=== PATIENT | male | born 1950 | race Caucasian/White ===

== ENCOUNTER → 2017-01-16 | Outpatient (CLI) | payer BC, MEDICARE ==
[~2017-01-16] MED LIST: ADAL20KI SQ; METH2.5T PO; SULF500T7 PO; [UNRECOGNIZED DRUG - CODE] PO
--- NOTE | 2017-01-16 08:15 | RAD ---
Chest, 2 views, 01/16/2017: History: Chest pain Comparison is made to a study from 05/18/2016. The heart size and pulmonary vascularity are normal. There is calcific plaque in the thoracic aorta. Stable pleural thickening laterally on the left is probably due to scarring. No acute infiltrate is seen. There is no evidence of pleural fluid. Moderate hypertrophic spurring is present in the spine. IMPRESSION: No acute cardiopulmonary abnormality is detected.
== END | disposition home or self-care (01) ==
LOC: DXRADRC 07:40
PROVIDERS: ATTEND Physician Assistant Medical
DX: R07.9 Chest pain, unspecified (principal); I70.0 Atherosclerosis of aorta; Z95.5 Presence of coronary angioplasty implant and graft
CPT/HCPCS: 71020

== ENCOUNTER → 2017-07-25 | Outpatient (CLI) | payer MEDICARE ==
--- NOTE | 2017-07-25 15:26 | RAD ---
MR#: [id number] Date of Study: 07/25/2017 Ordering Physician: MARTY GALAN, Referring Physician: MARTY GALAN, Tech: Raiza Swan RDMS, RVT, RTR APPROVED REPORT Patient Location : OUT-PATIENT Indications Limited grayscale images of the bilateral saphenofemoral junctions do not reveal any evidence of thro mbus. Spectral waveforms with Valsalva maneuver did not reveal any evidence of reflux in the bilatera l greater and lesser saphenous veins. The great saphenous vein on the right side measures 6.1 mm and on the left side measures 5.3 mm. The right lesser saphenous vein measures 4 mm in the left lesser sa phenous vein measures 4.3 mm Critical Notification Critical Value: No Signed by : Stephen Guerra, Electronically Approved : 07/25/2017 15:25:42
== END | disposition home or self-care (01) ==
LOC: US 12:17
PROVIDERS: ATTEND Internal Medicine Cardiovascular Disease
DX: R60.0 Localized edema (principal)
CPT/HCPCS: 93970

== ENCOUNTER → 2017-08-30 | Outpatient (CLI) | payer MEDICARE ==
--- NOTE | 2017-08-30 08:59 | RAD ---
Chest, 2 views, 08/30/2017: History: Chest congestion The heart size and pulmonary vascularity are normal. No pulmonary infiltrate is seen. There is no evidence of pleural fluid. Moderate hypertrophic spurring is present in the spine. IMPRESSION: No acute cardiopulmonary abnormality is detected.
== END | disposition home or self-care (01) ==
LOC: PMG 08:03
PROVIDERS: ATTEND Physician Assistant Medical
DX: R09.89 Other specified symptoms and signs involving the circulatory and respiratory systems (principal)
CPT/HCPCS: 71046

== ENCOUNTER → 2018-06-11 | Outpatient (CLI) | payer MEDICARE ==
[~2018-06-11] MED LIST changes: +ASPI325T8 PO; +ATOR40TA59 PO; +CLOP75TA57 PO; +HYDR200T5 PO; +LOSA50TA14 PO; +METO-239 PO; +TERA5CAP3 PO
[2018-06-11 15:10] LABS: CALCIUM 9.3 mg/dL (8.5-10.1); CREATININE 1.3 mg/dL (0.7-1.3); GFR 55.1
== END | disposition home or self-care (01) ==
LOC: LAB 14:22
PROVIDERS: ATTEND Physician Assistant Medical
DX: M79.606 Pain in leg, unspecified (principal); R60.9 Edema, unspecified
CPT/HCPCS: 36415; 80048

== ENCOUNTER 2018-06-12 19:43 | Emergency (ER) | payer MEDICARE ==
[~2018-06-12 19:43] MED LIST changes: -ASPI325T8 PO; -ATOR40TA59 PO; -CLOP75TA57 PO; -HYDR200T5 PO; -LOSA50TA14 PO; -METO-239 PO; -TERA5CAP3 PO
[2018-06-12] MEDS ORDERED: ONDANSETRON PF 4 MG/2 ML VIAL. ONE (19:46)
[2018-06-12] MEDS ORDERED: ONDANSETRON ODT 4 MG TAB.RAPDIS ONE (19:47)
[2018-06-12] MEDS ORDERED: IV NORMAL SALINE 1,000ML 1,000 ML IV ONE (20:00)
[2018-06-12 20:15] LABS: BASO % 0 % (0-3); EOS % 0 % (0-3); HEMATOCRIT 52.5 % (39.0-53.0); HEMOGLOBIN 17.6 g/dL (13.0-17.5); LYMPH # 2.1 x10^3/uL (1.0-4.8); LYMPH % 10 % (24-48); MEAN CORPUSCULAR HEMOGLOBIN 30 pg (25-35); MEAN CORPUSCULAR HGB CONC 34 g/dL (31-37); MEAN CORPUSCULAR VOLUME 89 fL (79-100); MONO # 1.2 x10^3/uL (0.0-1.1); MONO % 6 % (0-9); NEUT # 16.9 x10^3uL (1.8-7.7); NEUT % 83 % (31-73); PLATELET COUNT 304 x10^3/uL (140-400); RED BLOOD COUNT 5.92 x10^6/uL (4.30-5.70); RED CELL DISTRIBUTION WIDTH 13.5 % (11.5-14.5); WHITE BLOOD COUNT 20.3 x10^3/uL (4.0-11.0)
[2018-06-12] MEDS ORDERED: ONDANSETRON PF 4 MG/2 ML VIAL. IV ONE ×2 (20:15)
[2018-06-12] MEDS ORDERED: ONDANSETRON ODT 4 MG TAB.RAPDIS PO ONE (20:15)
[2018-06-12] MEDS ORDERED: PROCHLORPERAZINE 10 MG/2 ML VIAL. IV ONE (20:45)
--- NOTE | 2018-06-12 20:46 | PHYS DOC ---
Past History Past Medical History: Hypertension, Other Past Surgical History: Other Smoking: Cigarettes Alcohol Use: Heavy Drug Use: None Adult General Chief Complaint Chief Complaint: ABDOMINAL PAIN HPI HPI 68-year-old male presents with abdominal pain and vomiting. The patient tells me that he has had abdominal cramping this. Umbilical all day. He began to vomit at 5 PM today and is unable to stop. He has not had a normal bowel movement in 2 days. He has not had any gas since this morning. Patient has a cardiac history of stent placed 2-1/2 years ago with a 95% blockage. The patient is scheduled for a repeat heart catheter next week. The patient was recently placed on a "water pill". He was not placed on potassium supplementation. He had labs drawn yesterday which showed a potassium of 3.0. Patient denies overt chest pain or shortness of breath. He does tell me that he has a known left bundle-branch block. He denies fever or chills. He takes baby aspirin daily. He is unable to keep down anything orally liquid or solid. Review of Systems Review of Systems Constitutional: Denies fever or chills [] Eyes: Denies change in visual acuity, redness, or eye pain [] HENT: Denies nasal congestion or sore throat [] Respiratory: Denies cough or shortness of breath [] Cardiovascular: No additional information not addressed in HPI [] GI: Periumbilical abdominal pain, nausea, vomiting. No bloody stools or diarrhea [] : Denies dysuria or hematuria [] Musculoskeletal: Denies back pain or joint pain [] Integument: Denies rash or skin lesions [] Neurologic: Denies headache, focal weakness or sensory changes [] Endocrine: Denies polyuria or polydipsia [] All other systems were reviewed and found to be within normal limits, except as documented in this note. Current Medications Current Medications Current Medications Medications (Trade) Dose Ordered Sig/Ngoc Start Time Stop Time Status Last Admin Dose Admin Ondansetron HCl (Zofran Odt) 4 mg 1X ONCE 06/12/18 20:15 06/12/18 20:18 DC 06/12/18 20:12 4 MG Ondansetron HCl (Zofran) 4 mg 1X ONCE 06/12/18 20:15 06/12/18 20:18 DC 06/12/18 20:12 4 MG Sodium Chloride 1,000 ml @ 1,000 mls/hr 1X ONCE 06/12/18 20:00 06/12/18 20:59 Allergies Allergies Allergies Coded Allergies Type Severity Reaction Last Updated Verified ampicillin Allergy Unknown 11/17/13 No bee venom protein (honey bee) Allergy Unknown 06/12/18 Yes Physical Exam Physical Exam Constitutional: Well developed, well nourished, no acute distress, non-toxic appearance. Diaphoretic [] HENT: Normocephalic, atraumatic, bilateral external ears normal, oropharynx dry , no oral exudates, nose normal. [] Eyes: PERRLA, EOMI, conjunctiva normal, no discharge. [] Neck: Normal range of motion, no tenderness, supple, no stridor. [] Cardiovascular:Heart rate regular rhythm, no murmur [] Lungs & Thorax: Bilateral breath sounds clear to auscultation [] Abdomen: Soft, mild diffuse tenderness, no masses, no pulsatile masses. [] Skin: Warm, dry, no erythema, no rash. [] Back: No tenderness, no CVA tenderness. [] Extremities: No tenderness, no cyanosis, no clubbing, ROM intact, no edema. [] Neurologic: Alert and oriented X 3, normal motor function, normal sensory function, no focal deficits noted. [] Psychologic: Affect normal, judgement normal, mood normal. [] Current Patient Data Vital Signs Vital Signs Date Time Temp Pulse Resp B/P (MAP) Pulse Ox O2 Delivery O2 Flow Rate FiO2 06/12/18 19:45 98.2 87 28 100 Room Air Lab Results Laboratory Tests Test 06/12/18 19:40 White Blood Count 20.3 x10^3/uL (4.0-11.0) H Red Blood Count 5.92 x10^6/uL (4.30-5.70) H Hemoglobin 17.6 g/dL (13.0-17.5) H Hematocrit 52.5 % (39.0-53.0) Mean Corpuscular Volume 89 fL (79-100) Mean Corpuscular Hemoglobin 30 pg (25-35) Mean Corpuscular Hemoglobin Concent 34 g/dL (31-37) Red Cell Distribution Width 13.5 % (11.5-14.5) Platelet Count 304 x10^3/uL (140-400) Neutrophils (%) (Auto) 83 % (31-73) H Lymphocytes (%) (Auto) 10 % (24-48) L Monocytes (%) (Auto) 6 % (0-9) Eosinophils (%) (Auto) 0 % (0-3) Basophils (%) (Auto) 0 % (0-3) Neutrophils # (Auto) 16.9 x10^3uL (1.8-7.7) H Lymphocytes # (Auto) 2.1 x10^3/uL (1.0-4.8) Monocytes # (Auto) 1.2 x10^3/uL (0.0-1.1) H Eosinophils # (Auto) 0.0 x10^3/uL (0.0-0.7) Basophils # (Auto) 0.0 x10^3/uL (0.0-0.2) Platelet Estimate Pending EKG EKG Sinus rhythm, rate 85, left axis, prolonged IA, left bundle branch block.[] Radiology/Procedures Radiology/Procedures [] Course & Med Decision Making Course & Med Decision Making Pertinent Labs and Imaging studies reviewed. (See chart for details) The patient had significant vomiting on arrival. He required 8 mg of Zofran and 10 mg of Compazine. His vomiting is now controlled. The patient's labs are significant for a white count of 20.3, potassium of 2.7, lactic acid 3.6, creatinine 1.8, and general hemoconcentration. I have given the patient 1 L normal saline. I will also give him an additional liter with 40 mEq of potassium. His EKG shows sinus rhythm but there is a left bundle-branch block. The patient did tell me that he has a known left bundle branch block so this was not new. His CT scan is pending. The patient's CT scan shows a small bowel obstruction in the pelvis. An NG tube will be placed in the ED. Repeat lactic acid ordered. I discussed the obstruction with the patient and the need for admission to a facility with surgery. The patient does not want to go to [facility]. He would prefer to go to [facility]. I discussed this with the transfer center at [facility] and Dr. Lira has accepted the patient. He will determine the appropriate [facility] facility and bed availability. The patient will go by ambulance. Greater than one hour of critical care time was spent on this patient. This is exclusive of any other billable procedures. [] Dragon Disclaimer Dragon Disclaimer This electronic medical record was generated, in whole or in part, using a voice recognition dictation system. Departure Departure: Impression: Primary Impression: Small bowel obstruction Additional Impressions: Lactic acidosis Hypokalemia Dehydration Coronary artery disease Abnormal CT of spine CHF (congestive heart failure) Disposition: 02 XFER SHT-TRM HOSP Condition: GUARDED Referrals: ROBERT POTTER (PCP) Problem Qualifiers Additional Impressions: Coronary artery disease Coronary Disease-Associated Artery/Lesion type: unspecified vessel or lesion type [place] vs. transplanted heart: [place] heart Associated angina: without angina Qualified Codes: I25.10 - Atherosclerotic heart disease of [place] coronary artery without angina pectoris CHF (congestive heart failure) Heart failure type: systolic Heart failure chronicity: chronic Qualified Codes: I50.22 - Chronic systolic (congestive) heart failure DEBRA APODACA DO Jun 12, 2018 20:46
[2018-06-12] MEDS ORDERED: HYDR200T5 PO (20:50)
[2018-06-12] MEDS ORDERED: METO-239 PO (20:51)
[2018-06-12] MEDS ORDERED: ATOR40TA59 PO (20:51)
[2018-06-12 20:52] LABS: % BANDS 8 % (0-9); % LYMPHS 15 % (24-48); % MONOS 6 % (0-10); % SEGS 71 % (35-66)
[2018-06-12] MEDS ORDERED: LOSA50TA14 PO (20:52)
[2018-06-12 20:53] LABS: PLT ESTIMATE ADEQUATE (ADEQUATE); SMUDGE CELLS PRESENT; TOXIC GRANULATION MOD; TOXIC VACUOLATION SLIGHT
[2018-06-12] MEDS ORDERED: ASPI325T8 PO (20:53)
[2018-06-12] MEDS ORDERED: CLOP75TA57 PO (20:53)
[2018-06-12] MEDS ORDERED: TERA5CAP3 PO (20:54)
[2018-06-12] MEDS ORDERED: IOHEXOL 300 MG/ML 75 ML VIAL. IV ONE (21:00)
[2018-06-12 21:08] LABS: ALBUMIN 4.8 g/dL (3.4-5.0); ALBUMIN/GLOBULIN RATIO 1.1 (1.0-1.7); CALCIUM 10.2 mg/dL (8.5-10.1); CREATININE 1.8 mg/dL (0.7-1.3); GFR 37.8; TOTAL BILIRUBIN 0.8 mg/dL (0.2-1.0); TOTAL PROTEIN 9.2 g/dL (6.4-8.2)
[2018-06-12 21:12] LABS: POTASSIUM 2.7 mmol/L (3.5-5.1)
[2018-06-12] MEDS ORDERED: POTASSIUM CL 40MEQ IN 0.9%NACL 1,000 ML IV ONE (21:15)
--- NOTE | 2018-06-12 22:34 | RAD ---
Examination: CT ABDOMEN PELVIS WO CONTRAST History: Severe vomiting. Eval for obstruction. Unable to use contrast due to lab levels and GFR. No prior injury or surgery to abdomen Comparison/Correlation: None Findings: Axial images of the abdomen and pelvis were obtained without contrast. Sagittal and coronal reformatted images provided. Visualized lung bases are clear. Mild fatty infiltration of the liver is present. Gallbladder fossa is normal. Spleen is normal. Adrenal glands are normal. No radiopaque collecting system calculi or evidence of collecting system obstruction. Distended left abdominal small bowel loops evident with transition point within the mid pelvis. Diverticulosis of the colon is present primarily in the sigmoid region. No extraluminal gas or obstruction. No inflammatory changes. Appendix is normal. Stool within the distal ileum noted. Moderate quantity of stool in the colon. Prostate gland calcifications are notable. No ascites or pelvic free fluid. Multiple sclerotic bony lesions are present of varying sizes. Largest of these involves the L1 vertebra measuring 1.9 cm diameter. Impression: Distended jejunal loops of bowel with small bowel obstruction. Transition point within the mid pelvis. Diverticulosis. Sclerotic densities involving bony structures. While these may represent bone islands, more severe process is not necessarily excluded. Consider further evaluation with bone scintigraphy if osteoblastic metastases are a concern. No prostatomegaly seen. Electronically signed by: Ramy Baugh MD (06/12/2018 10:30 PM) [facility]
[2018-06-13 00:30] VITALS: BP 158/81
--- NOTE | 2018-06-13 02:33 | RAD ---
AP chest. HISTORY: NG placement AP view was taken of the chest. There is an NG tube in the mid esophagus. Lungs are clear. Heart is normal in size. The emergency room was called and notified of findings at 2:30 AM, the patient had been transferred. IMPRESSION: 1. NG tube in the mid esophagus. 2. No acute infiltrates. Electronically signed by: Alex Stanton MD (06/13/2018 2:29 AM) [facility]
== END 2018-06-13 01:03 | disposition short-term general hospital (02) ==
LOC: ER 19:43
DX: K56.609 Unspecified intestinal obstruction, unspecified as to partial versus complete obstruction (principal); E87.2 Acidosis; E87.6 Hypokalemia; E86.0 Dehydration; I25.10 Atherosclerotic heart disease of native coronary artery without angina pectoris; R93.89 Abnormal findings on diagnostic imaging of other specified body structures; I50.22 Chronic systolic (congestive) heart failure; I11.0 Hypertensive heart disease with heart failure; F17.210 Nicotine dependence, cigarettes, uncomplicated; F10.20 Alcohol dependence, uncomplicated; Z88.1 Allergy status to other antibiotic agents; Z91.030 Bee allergy status; Y90.9 Presence of alcohol in blood, level not specified
CPT/HCPCS: 36415; 43752; 71045; 74176; 80053; 83605; 83690; 84484; 85007; 85025; 96361; 96365; 96366; 96375; 99285; J0780; J2405; Q0162; J7030

== ENCOUNTER → 2018-10-07 | Outpatient (CLI) | payer MEDICARE ==
[~2018-10-07] MED LIST changes: +ASPI325T8 PO; +ATOR40TA59 PO; +CLOP75TA57 PO; +HYDR200T5 PO; +LOSA50TA14 PO; +METO-239 PO; +TERA5CAP3 PO
--- NOTE | 2018-10-07 13:49 | CARD ---
MR#: [id number] Date of Study: 10/07/2018 Ordering Physician: MARTY GALAN, Referring Physician: MARTY GALAN Tech: Clarisa Magallon RDCS APPROVED REPORT EXAM: Two-dimensional and M-mode echocardiogram with Doppler and color Doppler. Other Information Quality : Good Technically limited study due to INDICATION Cardiomyopathy 2D DIMENSIONS RVDd2.6 (2.9-3.5cm)Left Atrium(2D)4.1 (1.6-4.0cm) IVSd1.2 (0.7-1.1cm)Aortic Root(2D)2.6 (2.0-3.7cm) LVDd5.2 (3.9-5.9cm)LVOT Diameter2.3 (1.8-2.4cm) PWd1.2 (0.7-1.1cm)LVDs4.1 (2.5-4.0cm) FS (%) 21.4 %SV55.5 ml LVEF(%)43.1 (>50%) Aortic Valve AoV Peak Jimmy.176.4cm/sAoV VTI34.1cm AO Peak GR.12.4mmHgLVOT Peak Jimmy.103.8cm/s LVOT VTI 20.17cmAO Mean GR.7mmHg SELVIN (VMAX)2.60vl8WBF (VTI)2.39cm2 Mitral Valve MV E Tstrbnqk24.3cm/sMV DECEL OGYW759ag MV A Nkwmlmqo88.8cm/sE/A Ratio0.6 Pulmonary Vein S1 Kqlbjaoj94.8cm/sD2 Kockykuw59.2cm/s LEFT VENTRICLE The left ventricle is normal size. There is mild concentric left ventricular hypertrophy. Left ventri hoa systolic function is moderately impaired. EF 35% Septal motion consistent with conduction abnorma lity. There is moderate to severe global hypokinesis of the left ventricle. Transmitral Doppler flow pattern is Grade I-abnormal relaxation pattern. RIGHT VENTRICLE The right ventricle is normal size. The right ventricular systolic function is normal. ATRIA The left atrium is mildly dilated. The right atrium size is normal. The interatrial septum is intact with no evidence for an atrial septal defect or patent foramen ovale as noted on 2-D or Doppler imagi ng. AORTIC VALVE The aortic valve is calcified but opens well. Doppler and Color Flow revealed no significant aortic r egurgitation. There is no significant aortic valvular stenosis. MITRAL VALVE The mitral valve is normal in structure and function. There is no evidence of mitral valve prolapse. There is no mitral valve stenosis. Doppler and Color-flow revealed trace mitral regurgitation. TRICUSPID VALVE The tricuspid valve is normal in structure and function. Doppler and Color Flow revealed no tricuspid valve regurgitation noted. There is no tricuspid valve stenosis. PULMONIC VALVE The pulmonic valve is not well visualized. Doppler and Color Flow revealed trace pulmonic valvular re gurgitation. There is no pulmonic valvular stenosis. GREAT VESSELS The aortic root is normal in size. The ascending aorta is normal in size. The IVC is normal in size a nd collapses >50% with inspiration. PERICARDIAL EFFUSION There is no evidence of significant pericardial effusion. Critical Notification Critical Value: No <Conclusion> Left ventricle systolic function is moderately impaired. EF 35% Septal motion consistent with conduction abnormality. There is moderate to severe global hypokinesis of the left ventricle. Signed by : Stephen Guerra, Electronically Approved : 10/07/2018 13:48:44
== END | disposition home or self-care (01) ==
LOC: ECHO 12:51
PROVIDERS: ATTEND Internal Medicine Cardiovascular Disease
DX: I35.8 Other nonrheumatic aortic valve disorders (principal); I51.7 Cardiomegaly
CPT/HCPCS: 93306

== ENCOUNTER → 2019-11-05 | Outpatient (CLI) | payer MEDICARE ==
--- NOTE | 2019-11-05 11:17 | CARD ---
MR#: [id number] Date of Study: 11/05/2019 Ordering Physician: MARTY GALAN, Referring Physician: MARTY GALAN, Tech: Anisha Wilson APPROVED REPORT EXAM: Two-dimensional and M-mode echocardiogram with Doppler and color Doppler. Other Information Quality : AverageHR: 80bpm INDICATION Cardiac Disease: CAD Cardiomyopathy Congestive Heart Failure Surgery/Intervention Pacemaker: Date: 2019 stent 4 years ago 2016 RISK FACTORS Hypertension Hyperlipidemia 2D DIMENSIONS Left Atrium(2D)3.6 (1.6-4.0cm)IVSd1.4 (0.7-1.1cm) Aortic Root(2D)3.3 (2.0-3.7cm)LVDd5.1 (3.9-5.9cm) LVOT Diameter1.9 (1.8-2.4cm)PWd1.4 (0.7-1.1cm) LVDs3.9 (2.5-4.0cm)FS (%) 22.3 % SV54.6 mlLVEF(%)44.7 (>50%) Aortic Valve AoV Peak Jimmy.151.9cm/sAoV VTI28.0cm AO Peak GR.9.2mmHgLVOT Peak Jimmy.113.5cm/s LVOT VTI 19.94cmAO Mean GR.4mmHg SELVIN (VMAX)2.29tx7MFW (VTI)2.09cm2 Mitral Valve MV E Hzgxpykg02.8cm/sMV DECEL TGYX379ag MV A Osbpyrcq73.6cm/sE/A Ratio0.8 Pulmonary Valve PV Peak Upfjbgkf12.5cm/sPV Peak Grad.4mmHg Tricuspid Valve TR P. Bqvyphvl374re/sRAP XMWSTAYR8hyHr TR Peak Gr.30jfFeBVED13jpRz Pulmonary Vein S1 Tpeyxzav90.1cm/sD2 Sxwdkhia59.9cm/s LEFT VENTRICLE The left ventricle is normal size. There is mild to moderate concentric left ventricular hypertrophy. The left ventricular systolic function is low normal. The Ejection Fraction is 40-45%. There is slig ht global hypokinesis of the left ventricle. Septal motion suggestive of paced rhythm. Transmitral Do ppler flow pattern is Grade I-abnormal relaxation pattern. RIGHT VENTRICLE The right ventricle is normal size. There is normal right ventricular wall thickness. The right ventr icular systolic function is normal. There is a pacemaker lead in the right ventricle. ATRIA The left atrium size is normal. The right atrium size is normal. The interatrial septum is intact wit h no evidence for an atrial septal defect or patent foramen ovale as noted on 2-D or Doppler imaging. AORTIC VALVE The aortic valve is normal in structure and function. Doppler and Color Flow revealed trace aortic re gurgitation. There is no significant aortic valvular stenosis. MITRAL VALVE The mitral valve is normal in structure and function. There is no evidence of mitral valve prolapse. There is no mitral valve stenosis. Doppler and Color-flow revealed trace mitral regurgitation. TRICUSPID VALVE The tricuspid valve is normal in structure and function. Doppler and Color Flow revealed trace tricus pid regurgitation with an estimated PAP of 29 mmHg. There is no tricuspid valve stenosis. PULMONIC VALVE The pulmonic valve is not well visualized. Doppler and Color Flow revealed trace pulmonic valvular re gurgitation. There is no pulmonic valvular stenosis. GREAT VESSELS The aortic root is normal in size. The IVC was not visualized. PERICARDIAL EFFUSION There is no evidence of significant pericardial effusion. Critical Notification Critical Value: No <Conclusion> The left ventricular systolic function is low normal. The Ejection Fraction is 40-45%. There is slight global hypokinesis of the left ventricle. Septal motion suggestive of paced rhythm. There is a pacemaker lead in the right ventricle. Signed by : Stephen Guerra, Electronically Approved : 11/05/2019 11:17:32
== END | disposition home or self-care (01) ==
LOC: ECHO 09:52
PROVIDERS: ATTEND Internal Medicine Cardiovascular Disease
DX: I51.7 Cardiomegaly (principal); K57.90 Diverticulosis of intestine, part unspecified, without perforation or abscess without bleeding; K76.0 Fatty (change of) liver, not elsewhere classified; I42.9 Cardiomyopathy, unspecified
CPT/HCPCS: 93306

== ENCOUNTER → 2020-05-10 | Outpatient (CLI) | payer MEDICARE ==
[~2020-05-10] MED LIST changes: +REGADENOSON 0.4 MG/5 ML DISP.SYRIN. IV ONE
--- NOTE | 2020-05-10 12:54 | RAD ---
MR#: [id number] Date of Study: 05/10/2020 Ordering Physician: MARTY DE LA ROSA Referring Physician: STEVEN HENRY Tech: RT Carlos WalkerR) (N) APPROVED REPORT Test Type: Pharmacological Stress Nurse/Tech: RT Aaron (Mati) (N) Test Indications: coronary artery disease Cardiac History: 1 stent about 4 years ago Medications: see EHR Medical History: see EHR Resting ECG: v paced Resting Heart Rate: 66 bpm Resting Blood Pressure: 158/76mmHg Nurse/Tech Notes Consent: The procedure was explained to the patient in lay terms. Informed consent was witnessed. Paulie eout was entered into Connect. History and Stress Test performed by RT Aaron (Mati) (N) Pharm. Details Pharmacologic stress testing was performed using 0.4mg per 5ml of regadenoson given intravenously ove r 7-10 seconds. POST EXERCISE Reason for Termination: Infusion complete Max HR: 86 bpm Max Blood Pressure: 154/76mmHg INTERPRETATION Stress EKG Conclusion: Baseline EKG showed atrial sensed ventricular paced rhythm. Non diagnostic ch anges at peak stress. No arrhythmias. Imaging Protocol IMAGE PROTOCOL: Rest Tc-99m/stress Tc-99m 1 day Rest: Stress: Viability: Radiopharm.Tc99m CdyuhywjkLg42w Sestamibi Dose10.7mCi 31mCi Duration 15min. 10min. Img Date 05/10/2020 05/10/2020 Inj-Img Ucqy39mhe. 60min. Rest Admin Site:IV - Right HandAdministrator: RT Aaron (R)(N) Stress Admin Site: IV - Right HandAdministrator: RT Aaron (Mati)(N) STRESS DATA End Diast. Vol.86.0mlAv. Heart Rate85.0bpm End Syst. Vol.29.0mlCO Index BSA0.0L/min Myocardial Wugv220.0gEject. Hdbnwtjj18.0% Stress Rates Pk. Fill Rate3.76EDV/secLVtime Pk. Fill 207.49msec Pk. Empty Rate4.90ESV/secLVtime Pk. Eject98.19msec 1/3 Pk. Fill0.88EDV/sec Stress Scores Regional WT0.00Summed WT5.00 Regional WM0.00Summed WM6.00 Study quality was good. Left Ventricular size was Normal at Rest and Stress. Lung uptake was . Left Ventricular ejection fraction is 75%. The rest and stress images show normal perfusion, normal contraction and thickening. LV Perf. Quant 17 Seg. SSS0.00 17 Seg. SRS1.00 17 Seg. SDS0.00 Stress Defect Extent (% LAD)0.00Rest Defect Extent (% LAD)0.00Rev. Defect Extent (% LAD)0.00 Stress Defect Extent (% LCX) 0.00Rest Defect Extent (% LCX)15.00Rev. Defect Extent (% LCX)0.00 Stress Defect Extent (% RCA)0.00Rest Defect Extent (% RCA)0.00Rev. Defect Extent (% RCA)0.00 Stress Defect Extent (% DEANDRE)0.00Rest Defect Extent (% DEANDRE)3.30Rev. Defect Extent (% DEANDRE)0.00 Conclusion 1. Regadenoson cardioisotope stress test did not show any evidence of ischemia or infarct. 2. Normal left ventricular systolic function with ejection fraction calculated at 75%. 3. Low risk for cardiac events. Signed by : Marty De La Rosa, Electronically Approved : 05/10/2020 12:54:13
--- NOTE | 2020-05-10 14:04 | RAD ---
MR#: [id number] Date of Study: 05/10/2020 Ordering Physician: MARTY GALAN, Referring Physician: MARTY GALAN, Tech: APPROVED REPORT Patient Location: OUT-PATIENT Laterality:Bilateral Indications Bruit Grayscale images demonstrate mild to moderate diffuse atherosclerosis without any focal obstruction. Spectral waveforms and color Doppler are grossly within normal limits in the bilateral internal carot id arteries. Overall 0 to less than 50% stenosis. No significant external carotid arterial disease noted. Bilateral vertebral velocities are antegrade. Risk Factors Hypertension: Treated with medical therapy : Smoking Doppler Spectral Velocity Analysis Right Left pCCA 99/23 cm/spCCA 96/25 cm/s mCCA 77/21 cm/smCCA 91/27 cm/s dCCA 75/20 cm/sdCCA 81/25 cm/s ECA 124/ cm/sECA 121/ cm/s pICA 75/19 cm/spICA 73/19 cm/s Syed 67/15 cm/smICA 77/26 cm/s dICA 35/13 cm/sdICA 101/35 cm/s ICA/CCA 0.76ICA/CCA 1.05 Critical Notification Critical Value: No <Conclusion> 1. No significant carotid occlusive disease bilaterally Signed by : Stephen Guerra, Electronically Approved : 05/10/2020 14:04:33
== END ==
LOC: NM 08:11
PROVIDERS: ATTEND Internal Medicine Cardiovascular Disease
DX: R09.89 Other specified symptoms and signs involving the circulatory and respiratory systems (principal)
CPT/HCPCS: 78452; 93017; 93880; A9500; J2785

== ENCOUNTER → 2020-11-15 | Outpatient (CLI) | payer MEDICARE, OTHER ==
[~2020-11-15] MED LIST changes: -REGADENOSON 0.4 MG/5 ML DISP.SYRIN. IV ONE
--- NOTE | 2020-11-16 10:06 | CARD ---
MR#: [id number] Date of Study: 11/15/2020 Ordering Physician: MARTY GALAN, Referring Physician: MARTY GALAN, Tech: Anisha Wilson [facility] APPROVED REPORT EXAM: Two-dimensional and M-mode echocardiogram with Doppler and color Doppler. Other Information Quality : AverageHR: 72bpm Rhythm : Pacemaker INDICATION Cardiomyopathy Surgery/Intervention Pacemaker: Date: 2018 RISK FACTORS Previous smoker 2D DIMENSIONS RVDd3.0 (2.9-3.5cm)Left Atrium(2D)3.7 (1.6-4.0cm) IVSd1.2 (0.7-1.1cm)Aortic Root(2D)2.9 (2.0-3.7cm) LVDd5.6 (3.9-5.9cm)LVOT Diameter2.0 (1.8-2.4cm) PWd1.1 (0.7-1.1cm)LVDs3.4 (2.5-4.0cm) FS (%) 40.4 %SV110.2 ml Aortic Valve AoV Peak Jimmy.151.7cm/sAoV VTI33.2cm AO Peak GR.9.2mmHgLVOT Peak Jimmy.82.9cm/s LVOT VTI 17.66cmAO Mean GR.5mmHg SELVIN (VMAX)1.67wn2VRO (VTI)1.67cm2 Mitral Valve MV E Bvgpqjvw79.9cm/sMV DECEL KDLR447yg MV A Nflhklsb38.5cm/sE/A Ratio0.7 Pulmonary Valve PV Peak Mhpztcub61.6cm/sPV Peak Grad.2mmHg Tricuspid Valve TR P. Eqresepy461rl/sRAP BSQDSDOG3crLv TR Peak Gr.79xzMnTGGE82yjBf Pulmonary Vein S1 Pgxvrwah37.5cm/sD2 Difuyyia70.6cm/s LEFT VENTRICLE The left ventricle is normal size. There is mild concentric left ventricular hypertrophy. Overall lef t ventricular systolic function is intact with an ejection fraction of 55 to 60%. There is a small a celeste of very apical mild hypokinesis. Transmitral Doppler flow pattern is Grade I-abnormal relaxation pattern. RIGHT VENTRICLE The right ventricle is mildly dilated. There is normal right ventricular wall thickness. The right ve ntricular systolic function is normal. There is a pacemaker lead in the right ventricle. ATRIA The left atrium size is normal. The right atrium size is normal. The interatrial septum is intact wit h no evidence for an atrial septal defect or patent foramen ovale as noted on 2-D or Doppler imaging. AORTIC VALVE The aortic valve is thickened but opens well. Doppler and Color Flow revealed trace aortic regurgitat ion. There is no significant aortic valvular stenosis. Calculated aortic valve area is 2.0 cm2 with m aximum pressure gradient of 9 mmHg and mean pressure gradient of 5 mmHg. MITRAL VALVE The mitral valve is normal in structure and function. There is no evidence of mitral valve prolapse. There is no mitral valve stenosis. Doppler and Color-flow revealed trace mitral regurgitation. TRICUSPID VALVE The tricuspid valve is normal in structure and function. Doppler and Color Flow revealed trace tricus pid regurgitation with an estimated PAP of 31 mmHg. There is no tricuspid valve stenosis. PULMONIC VALVE The pulmonic valve is not well visualized. Doppler and Color Flow revealed trace pulmonic valvular re gurgitation. GREAT VESSELS The aortic root is normal in size. The IVC is normal in size and collapses >50% with inspiration. PERICARDIAL EFFUSION There is no evidence of significant pericardial effusion. Critical Notification Critical Value: No <Conclusion> The left ventricle is normal size. Overall left ventricular systolic function is intact with an ejection fraction of 55 to 60%. There is a small area of very apical mild hypokinesis. There is mild concentric left ventricular hypertrophy. Doppler and Color Flow revealed trace aortic regurgitation. There is no significant aortic valvular stenosis. Doppler and Color-flow revealed trace mitral regurgitation. Doppler and Color Flow revealed trace tricuspid regurgitation with an estimated PAP of 31 mmHg. Signed by : Vahid Palomares MD Electronically Approved : 11/16/2020 10:05:44
== END ==
LOC: ECHO 08:53
PROVIDERS: ATTEND Internal Medicine Cardiovascular Disease
DX: I51.7 Cardiomegaly (principal); I42.9 Cardiomyopathy, unspecified; Z95.0 Presence of cardiac pacemaker
CPT/HCPCS: 93306

== ENCOUNTER 2021-01-07 14:01 | Emergency (ER) | payer MEDICARE, OTHER ==
[~2021-01-07] VITALS: Ht 172.7 cm; Wt 99.2 kg
[2021-01-07 14:26] LABS: BASO # 0.1 x10^3/uL (0.0-0.2); BASO % 1 % (0-3); EOS # 0.4 x10^3/uL (0.0-0.7); EOS % 4 % (0-3); HEMATOCRIT 44.7 % (39.0-53.0); HEMOGLOBIN 15.2 g/dL (13.0-17.5); LYMPH # 3.8 x10^3/uL (1.0-4.8); LYMPH % 33 % (24-48); MEAN CORPUSCULAR HEMOGLOBIN 31 pg (25-35); MEAN CORPUSCULAR HGB CONC 34 g/dL (31-37); MEAN CORPUSCULAR VOLUME 91 fL (79-100); MONO % 9 % (0-9); NEUT # 6.1 x10^3uL (1.8-7.7); NEUT % 53 % (31-73); PLATELET COUNT 247 x10^3/uL (140-400); RED CELL DISTRIBUTION WIDTH 13.6 % (11.5-14.5); WHITE BLOOD COUNT 11.4 x10^3/uL (4.0-11.0)
[2021-01-07] MEDS ORDERED: IV NORMAL SALINE 500ML 500 ML IV ONE (14:30)
[2021-01-07 14:41] LABS: CALCIUM 9.7 mg/dL (8.5-10.1); CREATININE 1.4 mg/dL (0.7-1.3); GFR 50.2; POTASSIUM 3.7 mmol/L (3.5-5.1)
[2021-01-07] MEDS ORDERED: AMIODARONE 150 MG in IV DEXTROSE 5% 100 ML IVP ONE (14:45)
[2021-01-07 14:47] LABS: ALBUMIN 4.3 g/dL (3.4-5.0); ALBUMIN/GLOBULIN RATIO 1.3 (1.0-1.7); TOTAL BILIRUBIN 0.7 mg/dL (0.2-1.0); TOTAL PROTEIN 7.6 g/dL (6.4-8.2)
--- NOTE | 2021-01-07 14:49 | PHYS DOC ---
Past History Past Medical History: Hypertension, Other Additional Past Medical Histor: Autoimmune disease (Metz's syndrome) RA, Past Surgical History: Other Additional Past Surgical Histo: cardiac stent, Pacer/AICD, neck sx, back sx Smoking: Cigarettes Alcohol Use: Heavy Drug Use: None General Adult EDM: Chief Complaint: AICD FIRED OR SHOCKED HPI: HPI: Patient is a 70 year old man who presents with an AICD fire. Has a history of ischemic cardiomyopathy with an AICD placed in 2019. Has a biventricular [employer] device that was placed at [facility] by Dr. De La Rosa. He was mowing his lawn today when he started to feel unwell. States that he was sweaty and nauseous feeling. He went inside and then he began to feel his heart racing just prior to the shock. His heart rate returned to normal following the shock. Did not lose consciousness. No preceding chest pain or shortness of breath. Is now feeling somewhat better, although somewhat dehydrated. He has never had an AICD fired before. His AICD was placed for cardiomyopathy rather than malignant arrhythmia. Review of Systems: Review of Systems: Constitutional: Denies fever or chills Eyes: Denies change in visual acuity HENT: Denies nasal congestion or sore throat Respiratory: Denies cough or shortness of breath Cardiovascular: AICD fire. Denies chest pain. GI: Denies abdominal pain, vomiting, bloody stools or diarrhea. Mild nausea. : Denies dysuria Musculoskeletal: Denies back pain or joint pain Integument: Denies rash Neurologic: Denies headache, focal weakness or sensory changes Endocrine: Denies polyuria or polydipsia Lymphatic: Denies swollen glands Psychiatric: Denies depression or anxiety Current Medications: Current Meds: Current Medications Medications (Trade) Dose Ordered Sig/Ngoc Start Time Stop Time Status Last Admin Dose Admin Sodium Chloride 500 ml @ 0 mls/hr 1X ONCE 01/07/21 14:30 01/07/21 14:31 DC Allergies: Allergies: Allergies Coded Allergies Type Severity Reaction Last Updated Verified ampicillin Allergy Unknown 11/17/13 No bee venom protein (honey bee) Allergy Unknown 06/12/18 Yes Physical Exam: PE: Constitutional: Diaphoretic. Well developed, well nourished, no acute distress, non-toxic appearance. [] HENT: Normocephalic, atraumatic, bilateral external ears normal, oropharynx moist, no oral exudates, nose normal. [] Eyes: PERRLA, EOMI, conjunctiva normal, no discharge. [] Neck: Normal range of motion, no tenderness, supple, no stridor. [] Cardiovascular: Tachycardic. Regular rhythm, no murmur [] Lungs & Thorax: Bilateral breath sounds clear to auscultation [] Abdomen: Bowel sounds normal, soft, no tenderness, no masses, no pulsatile masses. [] Skin: Warm, dry, no erythema, no rash. [] Back: No tenderness, no CVA tenderness. [] Extremities: No tenderness, no cyanosis, no clubbing, ROM intact, no edema. [] Neurologic: Alert and oriented X 3, normal motor function, normal sensory function, no focal deficits noted. [] Psychologic: Affect normal, judgement normal, mood normal. [] Current Patient Data: Vital Signs: Vital Signs Date Time Temp Pulse Resp B/P (MAP) Pulse Ox O2 Delivery O2 Flow Rate FiO2 01/07/21 14:14 98.1 110 19 129/72 96 Room Air EKG: EKG: Wide-complex arrhythmia with slight R to R variability. Rate 113. lamination operator shows pacer spikes. As compared to previous leads V1 and V2 are now upright. Question lead placement problem. [] Radiology/Procedures: Radiology/Procedures: CXR[] Heart Score: C/O Chest Pain: No Risk Factors: Risk Factors: DM, Current or recent (<one month) smoker, HTN, HLP, family history of CAD, obesity. Risk Scores: Score 0 - 3: 2.5% MACE over next 6 weeks - Discharge Home Score 4 - 6: 20.3% MACE over next 6 weeks - Admit for Clinical Observation Score 7 - 10: 72.7% MACE over next 6 weeks - Early Invasive Strategies Course & Med Decision Making: Course & Med Decision Making Pertinent Labs and Imaging studies reviewed. (See chart for details) Patient is a 70-year-old male with a history of ischemic cardiomyopathy with an AICD placed who presents after an AICD fire. States that he was mowing his lawn and began to feel generally unwell. Denied any preceding chest pain or shortness of breath. Just prior to AICD firing he felt his heart start to race. Heart rate returned to normal following the defibrillation. He denies any loss of consciousness. On arrival is afebrile. Heart rate 113. EKG shows a wide complex rhythm rate 113. Somewhat similar to previous, although V1/V2 are flipped. Question whether this is poorly placement. On the monitor it shows clear pacer spikes. Seems to slow for V. tach. Discussed with Dr. De La Rosa, ruby engineer at [facility], recommended starting amiodarone and transferring to [place]. We do not have a bi[employer] interrogater in this ED, so I am contacting the rep for interrogation. [id number] Accepted for transfer to [place] by Dr. Damian, the hospitalist. [employer] rep aware of transfer to [place] and will plan on interrogating there. 1505 [place] Disclaimer: Cristofer Disclaimer: This electronic medical record was generated, in whole or in part, using a voice recognition dictation system. Departure Departure: Disposition: 02 SHORT TERM HOSPITAL Condition: STABLE Referrals: ROBERT POTTER (PCP) BIJAN STACK MD Jan 07, 2021 14:49
--- NOTE | 2021-01-07 14:49 | RAD ---
EXAM: XR CHEST 1V 01/07/2021 2:21 PM CLINICAL INDICATION: AICD fired COMPARISON: Chest radiograph 06/12/2018 TECHNIQUE: AP upright view of the chest FINDINGS: A triple lead pacemaker/AICD is grossly unchanged. The heart is normal in size. Lungs are well-expanded and clear. No pleural effusion or pneumothorax. There is acromioclavicular degenerative joint disease. IMPRESSION: No acute cardiopulmonary abnormality. Electronically signed by: Meghan Thomas MD (01/07/2021 2:47 PM) [id number]
[2021-01-07] MEDS ORDERED: AMIODARONE 450 MG in IV DEXTROSE 5% 250 ML IV ONE (15:00)
--- NOTE | 2021-01-07 15:43 | EKG ---
[address] [address] Test Date: 2021-01-07 Test Time: 14:04:33 Pat Name: MARLON GARZA Department: Room: Gender: M Chemistry Quality Control Technician: JASVIR : 1950 Requested By: BIJAN STACK Order Number: [id number] Reading MD: Measurements Intervals [place] Rate: 113 P: WI: QRS: 262 QRSD: 154 T: 73 QT: 364 QTc: 499 Interpretive Statements IRREGULAR RHYTHM, NO P-WAVE FOUND ABNORMAL RIGHT SUPERIOR AXIS DEVIATION RIGHT BUNDLE BRANCH BLOCK RVH WITH REPOLARIZATION ABNORMALITY QRS(T) CONTOUR ABNORMALITY CONSISTENT WITH INFERIOR INFARCT POSSIBLY RECENT ABNORMAL ECG RI6.02 No previous ECG available for comparison
[2021-01-07 16:35] VITALS: BP 135/82
== END 2021-01-07 17:11 | disposition short-term general hospital (02) ==
LOC: ER 14:01
DX: I25.5 Ischemic cardiomyopathy (principal); I10 Essential (primary) hypertension; Z95.810 Presence of automatic (implantable) cardiac defibrillator; Z88.1 Allergy status to other antibiotic agents
CPT/HCPCS: 36415; 71045; 80053; 83735; 84484; 85025; 93005; 96365; 99285; J0282; J7040

== ENCOUNTER → 2021-03-10 | Outpatient (CLI) | payer MEDICARE, OTHER ==
--- NOTE | 2021-03-10 15:43 | RAD ---
EXAMINATION: DG VIDEO SWALLOW STUDY 03/10/2021 8:35 AM HISTORY: Dysphagia COMPARISON: None. TECHNIQUE: The patient ingested effervescent crystals followed by thick and thin barium and was obser robbie swallowing under fluoroscopy. FINDINGS: Grossly normal esophageal mucosa. The esophagus distends normally. There was normal motility on some swallows and mild dysmotility noted on several swallows with bolus breakup and some tertiary contract ions. Tiny hiatal hernia. No gastroesophageal reflux noted during the exam. Total fluoroscopic time:2.9 minutes. IMPRESSION: 1. Mild esophageal dysmotility. 2. Tiny hiatal hernia. Electronically signed by: Meghan Thomas MD (03/10/2021 3:41 PM) [id number]
== END ==
LOC: RAD 08:23
PROVIDERS: ATTEND Physician Assistant Medical
DX: K44.9 Diaphragmatic hernia without obstruction or gangrene (principal); R13.10 Dysphagia, unspecified
CPT/HCPCS: 74220

== ENCOUNTER → 2021-03-23 | Outpatient (CLI) | payer MEDICARE, OTHER | LOC: LAB 11:13 | PROVIDERS: ATTEND Physician Assistant Medical | DX: E87.6 Hypokalemia (principal) | CPT/HCPCS: 36415; 84132 ==

== ENCOUNTER → 2021-04-05 | Outpatient (CLI) | payer MEDICARE, OTHER | LOC: LAB 13:28 | PROVIDERS: ATTEND Physician Assistant Medical | DX: E87.6 Hypokalemia (principal) | CPT/HCPCS: 36415; 84132 ==